=== PATIENT | female | born 1995 | race Caucasian/White ===

== ENCOUNTER → 2021-10-08 | Outpatient (CLI) | payer SELFPAY | LOC: M RAD 10:56 | PROVIDERS: ATTEND Nurse Practitioner Women's Health | DX: O43.90 Unspecified placental disorder, unspecified trimester (principal); O09.899 Supervision of other high risk pregnancies, unspecified trimester; Z3A.27 27 weeks gestation of pregnancy ==

== ENCOUNTER 2021-10-17 02:27 | Outpatient (CLI) | payer SELFPAY ==
[~2021-10-17] VITALS: Ht 167.6 cm; Wt 82.0 kg
[2021-10-17 02:39] VITALS: BP 122/72
[2021-10-17] MEDS ORDERED: LR 1,000 ML IV ONE (02:55)
[2021-10-17 03:10] LABS: HEMATOCRIT 36.4 % (36.0-47.0); HEMOGLOBIN 12.1 g/dl (12.0-15.5); MEAN CORPUSCULAR HEMOGLOBIN 28.8 pg (27.0-33.0); MEAN CORPUSCULAR HGB CONC 33.2 g/dl (32.0-36.5); MEAN CORPUSCULAR VOLUME 86.7 fl (80.0-96.0); PLATELET COUNT, AUTOMATED 203 10^3/uL (150-450); WHITE BLOOD COUNT 11.1 10^3/uL (4.0-10.0)
[2021-10-17 03:21] LABS: INR 1.05; PROTHROMBIN TIME 14.1 SECONDS (12.7-14.5)
[2021-10-17 03:22] LABS: PARTIAL THROMBOPLASTIN TIME 35.6 SECONDS (25.9-37.0)
[2021-10-17 04:48] LABS: ALBUMIN 2.7 GM/DL (3.2-5.2); ALT/SGPT 13 U/L (12-78); BILIRUBIN,TOTAL 0.3 MG/DL (0.2-1.0); BLOOD UREA NITROGEN 7 MG/DL (7-18); CALCIUM LEVEL 8.3 MG/DL (8.5-10.1); CARBON DIOXIDE LEVEL 20 MEQ/L (21-32); CHLORIDE LEVEL 109 MEQ/L (98-107); GLOMERULAR FILTRATION RATE > 60.0 (>60); GLUCOSE, FASTING 89 MG/DL (70-100); HIV 1&2 SCREEN CENTAUR NEGATIVE (NEGATIVE); SODIUM LEVEL 140 MEQ/L (136-145); TOTAL PROTEIN 6.6 GM/DL (6.4-8.2)
[2021-10-17] MEDS ORDERED: BETAMETHASONE SOLUSPAN 6MG/ML 5ML VIAL (J0702 PER 3MG) IM SCH (07:00)
[2021-10-18] MEDS ORDERED: PRENTAB9 PO (05:15)
== END 2021-10-17 06:38 | disposition home or self-care (01) ==
LOC: M LDO 02:27
PROVIDERS: ATTEND Obstetrics & Gynecology
DX: O46.93 Antepartum hemorrhage, unspecified, third trimester (principal); O44.33 Partial placenta previa with hemorrhage, third trimester; Z3A.29 29 weeks gestation of pregnancy
CPT/HCPCS: 59025; 76815; 80053; 85027; 85384; 85460; 85610; 85730; 86780; 86850; 86900; 86901; 86920; 87340; 87389; 87426; 96372; G0463; J0702

== ENCOUNTER 2021-10-18 05:05 | Outpatient (CLI) | payer SELFPAY ==
[2021-10-18] VITALS (10 sets, daily range): BP systolic 105–121; BP diastolic 55–64
[~2021-10-18] VITALS: Ht 167.6 cm; Wt 75.5 kg
[2021-10-18] MEDS ORDERED: HOME MED LIST COMPLETE! XX SCH (05:15)
[2021-10-18] MEDS ORDERED: PRENTAB9 PO (05:15)
[2021-10-18] MEDS ORDERED: BETAMETHASONE SOLUSPAN 6MG/ML 5ML VIAL (J0702 PER 3MG) IM ONE (07:00)
[2021-10-18 07:39] LABS: HEMATOCRIT 34.2 % (36.0-47.0); HEMOGLOBIN 11.3 g/dl (12.0-15.5); MEAN CORPUSCULAR HEMOGLOBIN 29.3 pg (27.0-33.0); MEAN CORPUSCULAR VOLUME 88.6 fl (80.0-96.0); PLATELET COUNT, AUTOMATED 207 10^3/uL (150-450); RED BLOOD COUNT 3.86 10^6/uL (4.00-5.40); WHITE BLOOD COUNT 16.5 10^3/uL (4.0-10.0)
[2021-10-18] MEDS: FERROUS GLUCONATE 324 MG TAB PO SCH ×2 (09:31→20:58)
[2021-10-18] MEDS: PRENATAL VITAMINS CHEWABLE TABLET PO SCH (09:31)
[2021-10-18] MEDS: DOCUSATE SODIUM 100MG CAPSULE PO SCH ×2 (11:02→20:58)
[2021-10-19 00:36] VITALS: BP 109/59
[2021-10-19 05:09] VITALS: BP 119/56
[2021-10-19 07:26] VITALS: BP 104/58
[2021-10-19] MEDS: PRENATAL VITAMINS CHEWABLE TABLET PO SCH (08:59)
[2021-10-19] MEDS: DOCUSATE SODIUM 100MG CAPSULE PO SCH (08:59)
[2021-10-19] MEDS: FERROUS GLUCONATE 324 MG TAB PO SCH (09:25)
[2021-10-19 09:30] VITALS: BP 106/57
[2021-10-19 11:23] VITALS: BP 110/54
[2021-10-19 11:49] LABS: HEMATOCRIT 33.8 % (36.0-47.0); HEMOGLOBIN 11.1 g/dl (12.0-15.5); MEAN CORPUSCULAR HEMOGLOBIN 29.4 pg (27.0-33.0); MEAN CORPUSCULAR HGB CONC 32.8 g/dl (32.0-36.5); MEAN CORPUSCULAR VOLUME 89.7 fl (80.0-96.0); PLATELET COUNT, AUTOMATED 209 10^3/uL (150-450); RED BLOOD COUNT 3.77 10^6/uL (4.00-5.40); WHITE BLOOD COUNT 15.3 10^3/uL (4.0-10.0)
== END 2021-10-19 12:10 | disposition home or self-care (01) ==
LOC: M LDO 05:05
PROVIDERS: ATTEND Obstetrics & Gynecology
DX: O26.893 Other specified pregnancy related conditions, third trimester (principal); R25.2 Cramp and spasm; O44.03 Complete placenta previa NOS or without hemorrhage, third trimester; Z3A.29 29 weeks gestation of pregnancy
CPT/HCPCS: 36415; 59025; 85027; 96372; G0378; G0463; J0702

== ENCOUNTER 2021-10-23 20:20 | Outpatient (CLI) | payer SELFPAY ==
[~2021-10-23] VITALS: Ht 167.6 cm; Wt 72.7 kg
[~2021-10-23 20:20] MED LIST: PRENTAB9 PO
[2021-10-23 20:27] VITALS: BP 122/71
[2021-10-23] MEDS: LR 1,000 ML IV SCH ×2 (21:12→22:46)
[2021-10-23 21:16] LABS: HEMATOCRIT 34.3 % (36.0-47.0); HEMOGLOBIN 11.3 g/dl (12.0-15.5); MEAN CORPUSCULAR HEMOGLOBIN 28.6 pg (27.0-33.0); MEAN CORPUSCULAR HGB CONC 32.9 g/dl (32.0-36.5); MEAN CORPUSCULAR VOLUME 86.8 fl (80.0-96.0); PLATELET COUNT, AUTOMATED 204 10^3/uL (150-450); RED BLOOD COUNT 3.95 10^6/uL (4.00-5.40); WHITE BLOOD COUNT 12.5 10^3/uL (4.0-10.0)
[2021-10-23 21:28] LABS: INR 0.96; PROTHROMBIN TIME 13.2 SECONDS (12.7-14.5)
[2021-10-23 21:29] LABS: PARTIAL THROMBOPLASTIN TIME 30.2 SECONDS (25.9-37.0)
[2021-10-23 22:34] VITALS: BP 98/57
[2021-10-23 23:04] VITALS: BP 115/66
[2021-10-23 23:27] VITALS: BP 115/64
[2021-10-23 23:34] VITALS: BP 115/64
[2021-10-24 00:10] VITALS: BP 109/62
[2021-10-24 00:34] VITALS: BP 108/64
[2021-10-24] MEDS: LR 1,000 ML IV SCH (00:46)
[2021-10-24 02:35] VITALS: BP 103/53
[2021-10-24 03:25] VITALS: BP 121/69
== END 2021-10-24 03:37 | disposition short-term general hospital (02) ==
LOC: M LDO 20:20
PROVIDERS: ATTEND Obstetrics & Gynecology
DX: O44.03 Complete placenta previa NOS or without hemorrhage, third trimester (principal); O32.1XX9 Maternal care for breech presentation, other fetus; Z3A.30 30 weeks gestation of pregnancy
CPT/HCPCS: 59025; 76815; 85027; 85384; 85610; 85730; 87426; G0463